=== PATIENT | male | born 1940 | race Caucasian/White ===

== ENCOUNTER 2017-10-27 06:21 | Day surgery (SDC) | payer MEDICARE ==
[~2017-10-27] VITALS: Ht 177.8 cm; Wt 81.6 kg
[~2017-10-27 06:21] MED LIST: ALLOPURINOL100 MG PO; AMLODIPINE5 MG PO; BYSTOLIC5 MG PO; DIGOXIN0.125 MG PO; DIOVAN40 MG OR; FLEXERIL PO; IMITREX100 M1 PO; LORTAB 10-325 M1 TAB PO; METOPROLOL SUCC25 MG PO; PANTOPRAZOLE SO40 MG PO; XARELTO20 MG PO
[2017-10-27] MEDS ORDERED: MOTRIN800 MG PO (10:09)
[2017-10-27] MEDS ORDERED: NORCO1 TA1 PO (10:09)
[2017-10-27 10:41] VITALS: BP 119/71
== END 2017-10-27 11:10 | disposition home or self-care (01) ==
LOC: ORM 06:21
PROVIDERS: ATTEND Surgery
PROC: 0YU60JZ Supplement Left Inguinal Region with Synthetic Substitute, Open Approach (ICD-10-PCS; principal; 2017-10-27)
DX: K40.90 Unilateral inguinal hernia, without obstruction or gangrene, not specified as recurrent (principal); I10 Essential (primary) hypertension; G47.33 Obstructive sleep apnea (adult) (pediatric); M19.90 Unspecified osteoarthritis, unspecified site; Z79.01 Long term (current) use of anticoagulants
CPT/HCPCS: C9290

== ENCOUNTER 2018-02-21 21:08 | Inpatient (IN) | payer MEDICARE ==
[~2018-02-21] VITALS: Ht 177.8 cm; Wt 81.8 kg
[~2018-02-21 21:08] MED LIST changes: +MOTRIN800 MG PO; +NORCO1 TA1 PO
[2018-02-21 21:48] LABS: URINE BLOOD DIPSTICK MODERATE (NEGATIVE); URINE COLOR YELLOW; URINE GLUCOSE - DIPSTICK NEGATIVE (NEGATIVE); URINE KETONE NEGATIVE (NEGATIVE); URINE LEUK ESTERASE NEGATIVE (NEGATIVE); URINE NITRITE - DIPSTICK NEGATIVE (Negative); URINE PH 5.5 (4.5-8.0); URINE PROTEIN - DIPSTICK 100 mg/dL (NEG-TRACE); URINE SPECIFIC GRAVITY >=1.030; URINE UROBILINOGEN - DIPSTICK 0.2 E.U./dL (0.2)
[2018-02-21 21:50] LABS: URINE BILIRUBIN - DIPSTICK NEGATIVE (NEGATIVE); URINE CLARITY CLEAR
[2018-02-21 21:52] LABS: HEMATOCRIT 50.4 % (39.0-50.0); HEMOGLOBIN 16.7 g/dl (14.0-18.0); IMMATURE GRANULOCYTES 0.5 % (0.0-5.0); MEAN CELL VOLUME 89.2 fL CALC (80.0-100.0); MEAN CORPUSCULAR HGB 29.6 pG CALC (26.0-32.0); MEAN CORPUSCULAR HGB CONC 33.1 g/L CALC (32.0-36.0); NEUT# 11.52 thou/uL (1.82-7.42); RED BLOOD COUNT 5.65 mill/uL (4.70-6.10); RED CELL DISTRI WIDTH 14.3 % (11.5-15.5)
[2018-02-21 21:57] LABS: URINE MUCUS FEW hpf (NONE-FEW); URINE WBC 0-2 WBC/hpf (0-5)
[2018-02-21 22:02] LABS: ALBUMIN 4.1 g/dL (3.2-5.0); ALKALINE PHOSPHATASE 64 u/l (38-126); ANION GAP 19 (6-22 (CALC)); BILIRUBIN, TOTAL 2.6 mg/dL (0.0-1.4); BUN 16 mg/dL (8-23); BUN/CREATININE RATIO 20 (12-20 (CALC)); CARBON DIOXIDE 22 mmol/l (22-30); CHLORIDE 106 mmol/l (95-108); CREATININE 0.8 mg/dL (0.7-1.3); GFR > 60 ML/MIN (>=60 (CALC)); GFR FOR AFR.AMER. > 60 ML/MIN (>=60 (CALC)); POTASSIUM 4.3 mmol/l (3.5-5.1); SGOT/AST 35 u/l (19-48); SGPT/ALT 43 u/l (11-66); SODIUM 142 mmol/l (137-146); TOTAL PROTEIN 7.4 g/dL (6.3-8.2)
[2018-02-21 22:08] LABS: ACT PARTIAL THROMBO TIME 32.9 SECONDS (20.0-32.5)
[2018-02-21 22:10] LABS: INTERNATIONAL NORMALIZED RATIO 1.5 RATIO (0.7-1.3); PROTHROMBIN TIME 16.4 SECONDS (9.0-12.5)
[2018-02-21 22:14] LABS: MYOGLOBIN 28 ng/mL (0 - 121)
[2018-02-21 23:40] VITALS: BP 117/65
[2018-02-22] VITALS (15 sets, daily range): BP systolic 89–145; BP diastolic 48–90
[2018-02-22 05:11] LABS: HEMATOCRIT 47.3 % (39.0-50.0); HEMOGLOBIN 15.4 g/dl (14.0-18.0); MEAN CELL VOLUME 90.4 fL CALC (80.0-100.0); MEAN CORPUSCULAR HGB 29.4 pG CALC (26.0-32.0); MEAN CORPUSCULAR HGB CONC 32.6 g/L CALC (32.0-36.0); RED BLOOD COUNT 5.23 mill/uL (4.70-6.10); RED CELL DISTRI WIDTH 14.4 % (11.5-15.5)
[2018-02-22 05:25] LABS: ANION GAP 12 (6-22 (CALC)); BUN 14 mg/dL (8-23); BUN/CREATININE RATIO 23 (12-20 (CALC)); CARBON DIOXIDE 23 mmol/l (22-30); CHLORIDE 110 mmol/l (95-108); CREATININE 0.6 mg/dL (0.7-1.3); GFR > 60 ML/MIN (>=60 (CALC)); GFR FOR AFR.AMER. > 60 ML/MIN (>=60 (CALC)); POTASSIUM 4.5 mmol/l (3.5-5.1); SODIUM 141 mmol/l (137-146)
[2018-02-23] VITALS (10 sets, daily range): BP systolic 118–161; BP diastolic 68–96
[2018-02-23 05:09] LABS: HEMOGLOBIN 15.9 g/dl (14.0-18.0); IMMATURE GRANULOCYTES 0.4 % (0.0-5.0); MEAN CELL VOLUME 88.7 fL CALC (80.0-100.0); MEAN CORPUSCULAR HGB 29.4 pG CALC (26.0-32.0); MEAN CORPUSCULAR HGB CONC 33.1 g/L CALC (32.0-36.0); NEUT# 6.37 thou/uL (1.82-7.42); RED BLOOD COUNT 5.41 mill/uL (4.70-6.10); RED CELL DISTRI WIDTH 14.2 % (11.5-15.5)
[2018-02-23 05:28] LABS: ALBUMIN 3.3 g/dL (3.2-5.0); ALKALINE PHOSPHATASE 53 u/l (38-126); ANION GAP 14 (6-22 (CALC)); BILIRUBIN, TOTAL 2.2 mg/dL (0.0-1.4); BUN 15 mg/dL (8-23); BUN/CREATININE RATIO 25 (12-20 (CALC)); CARBON DIOXIDE 23 mmol/l (22-30); CHLORIDE 109 mmol/l (95-108); CREATININE 0.6 mg/dL (0.7-1.3); GFR > 60 ML/MIN (>=60 (CALC)); GFR FOR AFR.AMER. > 60 ML/MIN (>=60 (CALC)); MAGNESIUM 1.8 mg/dL (1.6-2.3); POTASSIUM 3.8 mmol/l (3.5-5.1); SGOT/AST 24 u/l (19-48); SGPT/ALT 37 u/l (11-66); SODIUM 142 mmol/l (137-146)
[2018-02-24] VITALS (7 sets, daily range): BP systolic 106–162; BP diastolic 57–92
[2018-02-24 05:30] LABS: HEMATOCRIT 47.2 % (39.0-50.0); HEMOGLOBIN 15.8 g/dl (14.0-18.0); IMMATURE GRANULOCYTES 0.4 % (0.0-5.0); MEAN CELL VOLUME 88.6 fL CALC (80.0-100.0); MEAN CORPUSCULAR HGB 29.6 pG CALC (26.0-32.0); MEAN CORPUSCULAR HGB CONC 33.5 g/L CALC (32.0-36.0); NEUT# 5.17 thou/uL (1.82-7.42); RED BLOOD COUNT 5.33 mill/uL (4.70-6.10); RED CELL DISTRI WIDTH 13.9 % (11.5-15.5)
[2018-02-24 05:54] LABS: ALBUMIN 3.1 g/dL (3.2-5.0); ALKALINE PHOSPHATASE 50 u/l (38-126); ANION GAP 13 (6-22 (CALC)); BILIRUBIN, TOTAL 2.4 mg/dL (0.0-1.4); BUN 14 mg/dL (8-23); BUN/CREATININE RATIO 25 (12-20 (CALC)); CARBON DIOXIDE 25 mmol/l (22-30); CHLORIDE 108 mmol/l (95-108); CREATININE 0.6 mg/dL (0.7-1.3); GFR > 60 ML/MIN (>=60 (CALC)); GFR FOR AFR.AMER. > 60 ML/MIN (>=60 (CALC)); MAGNESIUM 1.8 mg/dL (1.6-2.3); POTASSIUM 3.9 mmol/l (3.5-5.1); SGOT/AST 16 u/l (19-48); SGPT/ALT 29 u/l (11-66); SODIUM 142 mmol/l (137-146); TOTAL PROTEIN 5.8 g/dL (6.3-8.2)
[2018-02-24] MEDS ORDERED: ZANTAC300 MG PO (11:36)
[2018-02-24] MEDS ORDERED: [UNRECOGNIZED DRUG - OTHER] PO (11:39)
== END 2018-02-24 12:28 | disposition home or self-care (01) | DRG 388 ==
LOC: ED 21:08 → ED-I 23:00 → ED 23:20 → ICU 23:20
PROVIDERS: Emergency Medicine; Internal Medicine Nephrology; ADMIT Internal Medicine; ATTEND Internal Medicine
DX: K56.7 Ileus, unspecified (principal); Q79.1 Other congenital malformations of diaphragm; J96.01 Acute respiratory failure with hypoxia; I10 Essential (primary) hypertension; I48.2 Chronic atrial fibrillation; I25.10 Atherosclerotic heart disease of native coronary artery without angina pectoris; E78.5 Hyperlipidemia, unspecified; K21.9 Gastro-esophageal reflux disease without esophagitis; D69.6 Thrombocytopenia, unspecified; Z82.69 Family history of other diseases of the musculoskeletal system and connective tissue; Z79.01 Long term (current) use of anticoagulants; Z79.899 Other long term (current) drug therapy
CPT/HCPCS: J1650

== ENCOUNTER → 2018-07-25 | Outpatient (REF) | payer MEDICARE ==
[~2018-07-25] MED LIST changes: +ZANTAC300 MG PO; +[UNRECOGNIZED DRUG - OTHER] PO
[2018-07-25 09:16] LABS: ALKALINE PHOSPHATASE 55 u/l (38-126); BILIRUBIN, TOTAL 2.1 mg/dL (0.0-1.4); BUN 16 mg/dL (8-23); BUN/CREATININE RATIO 21 (12-20 (CALC)); CARBON DIOXIDE 28 mmol/l (22-30); CHLORIDE 104 mmol/l (95-108); CREATININE 0.8 mg/dL (0.7-1.3); GFR > 60 ML/MIN (>=60 (CALC)); GFR FOR AFR.AMER. > 60 ML/MIN (>=60 (CALC)); HDL CHOLESTEROL 39 mg/dL (>=40); SGOT/AST 24 u/l (19-48); SODIUM 143 mmol/l (137-146); TOTAL TRIGLYCERIDES 80 mg/dl (30-149); VLDL CHOLESTROL 16 mg/dl (0-38 (CALC))
[2018-07-25 09:23] LABS: ALBUMIN 4.2 g/dL (3.2-5.0); ANION GAP 16 (6-22 (CALC)); CALCULATED LDLCHOLESTEROL 126 mg/dL (62-129 (CALC)); CHOLESTEROL HDL RATIO 4.6 (<4.4 (CALC)); POTASSIUM 4.7 mmol/l (3.5-5.1); TOTAL CHOLESTEROL 181 mg/dl (0-199); TOTAL PROTEIN 7.1 g/dL (6.3-8.2)
[2018-07-25 09:40] LABS: TSH, 3RD GENERATION 1.18 uIU/mL (0.47 - 4.68)
[2018-07-25 10:27] LABS: MEAN CELL VOLUME 91.9 fL CALC (80.0-100.0); MEAN CORPUSCULAR HGB 29.6 pG CALC (26.0-32.0); MEAN CORPUSCULAR HGB CONC 32.3 g/L CALC (32.0-36.0); RED BLOOD COUNT 6.04 mill/uL (4.70-6.10); RED CELL DISTRI WIDTH 13.9 % (11.5-15.5)
[2018-07-25 10:38] LABS: HEMATOCRIT 55.5 % (39.0-50.0); HEMOGLOBIN 17.9 g/dl (14.0-18.0)
== END | disposition home or self-care (01) ==
LOC: LAB 07:27
PROVIDERS: ATTEND Nurse Practitioner
DX: I10 Essential (primary) hypertension (principal); Z12.5 Encounter for screening for malignant neoplasm of prostate

== ENCOUNTER 2023-07-26 18:43 | Inpatient (IN) | payer MEDICARE ==
[~2023-07-26] VITALS: Ht 177.8 cm; Wt 77.0 kg
[2023-07-26] VITALS (12 sets, daily range): BP systolic 149–203; BP diastolic 111–138
--- NOTE | 2023-07-26 19:45 | NUR ---
PT TO ER TRIAGE WITH STEDAY GAIT.
--- NOTE | 2023-07-26 20:30 | NUR ---
PT TO ER ROOM 6 WITH STEADY GAIT. AT BEDSIDE. PT HAS NO COMPLAITS OTHER THAN HIGH BP. PT REPORT HE HAS HAD MIGRAINES FOR YEARS AND HAD ONE TODAY, NUT FELT NO DIFFERENT.
[2023-07-26] MEDS ORDERED: LUTEIN1 CAP PO (20:54)
[2023-07-26] MEDS ORDERED: BENAZEPRIL20 M1 PO (20:54)
[2023-07-26] MEDS ORDERED: PROSCAR5 MG PO (20:55)
[2023-07-26] MEDS ORDERED: OMEPRAZOLE DR40 MG PO (20:55)
[2023-07-26] MEDS ORDERED: TAMSULOSIN0.4 MG PO (20:56)
[2023-07-26 21:14] LABS: BASO% 0.3 % (0-3); HEMATOCRIT 50.1 % (39.0-50.0); HEMOGLOBIN 15.4 g/dl (14.0-18.0); IMMATURE GRANULOCYTES 0.2 % (0.0-5.0); LYMPH% 6.7 % (15-41); MEAN CELL VOLUME 81.9 fL CALC (80.0-100.0); MEAN CORPUSCULAR HGB 25.2 pG CALC (26.0-32.0); MEAN CORPUSCULAR HGB CONC 30.7 g/dL CAL (32.0-36.0); MONO% 4.8 % (2-13); NEUT# 9.23 thou/uL (1.82-7.42); RED BLOOD COUNT 6.12 mill/uL (4.70-6.10); RED CELL DISTRI WIDTH 16.4 % (11.5-15.5)
[2023-07-26] MEDS ORDERED: SODIUM CHLORIDE 0.9% 1,000 ML IV ONE (21:25)
[2023-07-26 21:27] LABS: ALKALINE PHOSPHATASE 74 u/l (38-126); ANION GAP 17 (6-22 (CALC)); BILIRUBIN, TOTAL 1.9 mg/dL (0.2-1.3); CARBON DIOXIDE 25 mmol/l (22-30); CHLORIDE 104 mmol/l (95-108); POTASSIUM 4.4 mmol/l (3.5-5.1); SGOT/AST 32 u/l (19-48); SODIUM 141 mmol/l (137-146); TOTAL PROTEIN 7.9 g/dL (6.3-8.2)
[2023-07-26 21:30] LABS: GFR FOR AFR.AMER. > 60 ML/MIN (>=60 (CALC)); GFR OTHER RACES > 60 ML/MIN (>=60 (CALC))
[2023-07-26 21:31] LABS: BUN 15 mg/dL (8-23); BUN/CREATININE RATIO 19 (12-20 (CALC)); CREATININE 0.8 mg/dL (0.7-1.3); GFR FOR AFR.AMER. > 60 ML/MIN (>=60 (CALC)); GFR OTHER RACES > 60 ML/MIN (>=60 (CALC))
[2023-07-26 21:32] LABS: ALBUMIN 4.8 g/dL (3.2-5.0)
[2023-07-26 21:42] LABS: INTERNATIONAL NORMALIZED RATIO 1.4 RATIO (0.7-1.3)
[2023-07-26 21:43] LABS: CALCULATED LDLCHOLESTEROL 132 mg/dL (62-129 (CALC)); HDL CHOLESTEROL 48 mg/dL (39.0-59.0); TOTAL CHOLESTEROL 192 mg/dl (0-199); TOTAL TRIGLYCERIDES 55 mg/dl (0-149); VLDL CHOLESTROL 11 mg/dl (0-38 (CALC))
[2023-07-26] MEDS ORDERED: ENALAPRILAT 1.25 MG/ML 1ML IV ONE ×2 (22:20→23:40)
[2023-07-26] MEDS ORDERED: ASPIRIN 81 MG/TAB PO ONE (22:20)
[2023-07-26] MEDS ORDERED: SODIUM CHLORIDE 0.9% 1,000 ML IV PRN (22:40)
[2023-07-26] MEDS ORDERED: ACETAMINOPHEN 325 MG/TAB PO PRN (22:40)
[2023-07-26] MEDS ORDERED: MAGNESIUM HYDROXIDE 30 ML UDC PO PRN (22:40)
[2023-07-26 23:07] LABS: URINE BILIRUBIN - DIPSTICK Negative (NEGATIVE); URINE BLOOD DIPSTICK Trace-intact (NEGATIVE); URINE GLUCOSE - DIPSTICK Negative (NEGATIVE); URINE KETONE Negative (NEGATIVE); URINE LEUK ESTERASE Negative (NEGATIVE); URINE NITRITE - DIPSTICK Negative (Negative); URINE PROTEIN - DIPSTICK Negative (NEG-TRACE); URINE SPECIFIC GRAVITY 1.015; URINE UROBILINOGEN - DIPSTICK 0.2 E.U./dL (0.2)
[2023-07-26 23:23] LABS: URINE COLOR Yellow
--- NOTE | 2023-07-26 23:45 | NUR ---
REPORT RECIEVED FROM EULOGIO GALO AT THIS TIME, PATIENT UPDATED ON CONTINUOUS PLAN OF CARE WITH NO FURTHER QUESTIONS OR CONCERNS AT THIS TIME, PATIENT VOICES APPRECIATION OF CARE, MD CONTINUALLY NOTIFIED OF ELEVATED B/P, AWAITING ALL FURTHER ORDERS AT THIS TIME.
[2023-07-27] VITALS (28 sets, daily range): BP systolic 145–193; BP diastolic 89–129
--- NOTE | 2023-07-27 | NUR ---
PATIENT REMAINS WITH NO DEFECITS AT THIS TIME, UPDATED ON CONTINUOUS PLAN OF CARE WITH NO FURTHER QUESTIONS AT THIS TIME, COMFORT MEASURES IN PLACE, PATIENT AWAITING ALL FURTHER ORDERS AT THIS TIME AND ROOM ASSIGNMENT FOR ADMISSION.
--- NOTE | 2023-07-27 01:10 | NUR ---
PATIENT UPDATED ON CONTINUOUS PLAN OF CARE WITH NO FURTHER QUESTIONS OR CONCERNS AT THIS TIME, MD CONTINUALLY NOTIFIED OF ELEVATED B/P, NO FURTHER ORDERS GIVEN AT THIS TIME, WILL CONTINUE NO MONITOR, PATIENT DENIES H/A. CONNECTED TO CONTINUOUS MONITORING.
--- NOTE | 2023-07-27 02:45 | NUR ---
PATIENT UPDATED ON CONTINUOUS PLAN OF CARE WITH NO FURTHER QUESTIONS OR CONCERNS, REMAINS IN SEMI-FOWLERS POITION, URINE OUTPUT NOTED AT 700 ML OF CLEAR, YELLOW URINE, PATIENT VOICES NO COMPLAINTS AT THIS TIME, AWAITING MD ORDERS FOR ELEVATED B/P. PATIENT VERBALIZES UNDERSTANDING, AT BEDSIDE.
[2023-07-27] MEDS ORDERED: LOSARTAN Potassium 50 MG/TAB PO ONE (03:45)
--- NOTE | 2023-07-27 04:15 | NUR ---
PATIENT MEDICATED PER ORDERS AT THIS TIME, PATIENT UPDATED ON CONTINUOUS PLAN OF CARE WITH NO FURTHER QUESTIONS OR CONCERNS AT THIS TIME, PATIENT TRANSFERRED TO RM #14 FOR ER HOLD AT THIS TIME. PATIENT VOICES NO FURTHER QUESTIONS OR CONCCERNS, GIVEN WARM BLANKET AND COMFORT MEASURES APPLIED AT THIS TIME, FAMILY AT BEDSIDE, CONNECTED TO CONTINUOUS MONITORING AT THIS TIME.
--- NOTE | 2023-07-27 05:10 | NUR ---
PATIENT AMB TO BR AT THIS TIME, MD CONTINUALLY NOTIFIED OF ELEVATED HTN, VOICES NO FURTHER ORDERS AT THIS TIME, FAMILY AT BEDSIDE, VOICES NO FURTHER QUESTIONS OR CONCERNS AT THIS TIME.
--- NOTE | 2023-07-27 06:25 | NUR ---
PATIENT CONTINUES WITH ELEVATED B/P TRENDING DOWN, PATIENT UPDATED ON CONTINUOUS PLAN OF CARE WITH NO FURTHER QUESTIONS OR CONCERNS AT THIS TIME, FAMILY AT BEDSIDE, AWAITING ROOM UPSTAIRS AT THIS TIME.
--- NOTE | 2023-07-27 07:00 | NUR ---
ASSUME CARE OF PT. PT IN ROOM RESTING WITH EYES CLOSED. VITALS STABLE, NO CONCERNS TO REPORT.
--- NOTE | 2023-07-27 08:00 | NUR ---
PT IN ROOM HAVING BREAKFAST. PT IS AWAITING A BED TO FLOOR. PT HAS NO CONCERNS AT THIS TIME. VSS, NAD
[2023-07-27] MEDS ORDERED: LOSARTAN Potassium 50 MG/TAB PO SCH (09:00)
--- NOTE | 2023-07-27 09:00 | NUR ---
PT IN ROOM RESTING WITH EYES OPEN. A FAMILY MEMBER IS IN ROOM WITH PT. NO CONCERNS TO REPORT. VITALS STABLE. NO DEFICIT TO REPORT
[2023-07-27] MEDS ORDERED: LABETALOL HCL 20 MG/ 4 ML CARTRG IV PRN (09:25)
--- NOTE | 2023-07-27 10:26 | NUR ---
TELE NEURO DOCTOR KIERRA ORTIZ SPEAKING WITH PATIENT AND PERFORMING REASSESSMENT. PT INFORMS DOCTOR THAT HE HAS A HISTORY OF MIGRAINES AND TAKES MEDICATION FOR IT AT HOME. THAT THE MIGRAINE HE HAD 07/26/23 WAS NO DIFFERNT THAN HIS USUAL MIGRAINES. PT IS EDUCATED ON THE NEED TO HAVE AN MRI DONE. PT STATES HE CANT DO THEM WITHOUT MEDICATION THAT HE GETS TO ANXIOUS. THIS NURSE STATES UNDERSTANDING.
[2023-07-27] MEDS ORDERED: MIDAZOLAM HCL 2 MG/2 ML VIAL IV PRN (11:10)
--- NOTE | 2023-07-27 11:30 | NUR ---
PT RESTING IN BED EATING LUNCH TRAY. VSS. PTS FAMILY AT SIDE. PT DENIES ANY NEEDS AT THIS TIME.
--- NOTE | 2023-07-27 12:45 | NUR ---
PT UP TO ER BATHROOM WITH STEADY GAIT.
--- NOTE | 2023-07-27 12:56 | NUR ---
RADIOLOGY IN ROOM WITH PATIENT. PT BEING TAKEN DOWN TO MRI. PT MEDICATED WITH VERSED PRIOR TO MRI.
--- NOTE | 2023-07-27 13:30 | NUR ---
PT RETURN FROM MRI. RADIOLOGY REPORTS NO COMPLICATIONS.
--- NOTE | 2023-07-27 14:00 | NUR ---
1300ML OF URINE COLLECTED FROM URINAL.
--- NOTE | 2023-07-27 14:58 | NUR ---
PT RESTING IN BED. VSS. AT BEDSIDE. PT EDUCATE DON PLAN OF DISCHARGE. PT STATES UNDERSTANDING.
--- NOTE | 2023-07-27 15:55 | NUR ---
D/C instructions given with verbalization of understanding. Pt. discharged home in stable condition.
== END 2023-07-27 15:26 | disposition home or self-care (01) | DRG 78 ==
LOC: ED 18:43 → ED-I 21:20 → ED 21:20 → ED-I 22:00 → ED 22:37 → ED-I 22:38
PROVIDERS: Emergency Medicine; ADMIT Student in an Organized Health Care Education/Training Program; ATTEND Student in an Organized Health Care Education/Training Program
DX: I67.4 Hypertensive encephalopathy (principal); I16.9 Hypertensive crisis, unspecified; G43.109 Migraine with aura, not intractable, without status migrainosus; I10 Essential (primary) hypertension; I25.10 Atherosclerotic heart disease of native coronary artery without angina pectoris; I48.91 Unspecified atrial fibrillation; E78.5 Hyperlipidemia, unspecified; D45 Polycythemia vera; H91.90 Unspecified hearing loss, unspecified ear; Z79.01 Long term (current) use of anticoagulants
CPT/HCPCS: Q9967